=== PATIENT | male | born 1945 | race Caucasian/White ===

== ENCOUNTER 2021-09-02 14:55 | Inpatient (IN) | payer MEDICARE, SELFPAY ==
--- NOTE | ~2021-09-02 | NM_ITS ---
EXAMINATION: NM avtar stress w perfusion DATE: 09/03/2021 12:41 INDICATION: Chest pain. TECHNIQUE: Rest images were obtained following intravenous administration of 10.5 mCi Tc99m tetrofosm in (Myoview). The patient was infused intravenously with Lexiscan (regadenoson). Then, 33 mCi Tc99m t etrofosmin (Myoview) was administered intravenously, and stress images were obtained. Data was recons tructed into short axis and horizontal and vertical long axis SPECT images. Gated SPECT images were a lso obtained. COMPARISON: None. FINDINGS: There is no definite reversible or fixed perfusion abnormality to suggest ischemia or infar ction. There is global hypokinesis. Left ventricular ejection fraction measures 18%. IMPRESSION: 1. No definite ischemia or infarct. 2. Global hypokinesis with left ventricular ejection fraction measuring 18%. Reviewed, dictated and finalized at location B. COORDINATOR
--- NOTE | ~2021-09-02 | XR_ITS ---
XR chest 1V portable 09/02/2021 17:51 Indication: Shortness of breath. Hypertension. Low heart rate. Procedure: AP portable chest Comparison: 05/02/2009 Findings: Cardiomegaly with mild interstitial edema. No significant effusion or pneumothorax. No acut e osseous abnormality. Impression: 1: Cardiomegaly with mild interstitial edema. Reviewed, dictated and finalized at location A. ORATE TECHNICAL RECRUITER Impression: 1: Cardiomegaly with mild interstitial edema.
--- NOTE | 2021-09-02 14:57 | ECG_ITS ---
Measurements Intervals [place] Rate: 94 P: -14 [place]: 180 QRS: -47 QRSD: 181 T: 109 QT: 430 QTc: 538 Interpretive Statements SINUS RHYTHM FREQUENT ATRIAL AND VENTRICULAR PREMATURE COMPLEXES LEFT BUNDLE BRANCH BLOCK BASELINE ARTIFACT- I, II, III, AVR ABNORMAL ECG Electronically Signed On 09-02-2021 16:45:39 SWITCHBOARD CLERK by Fazal Arshad D.O.
[2021-09-02 15:04] VITALS: BP 138/104; PULSE 45; RESP 18; TEMP 36.8; O2SAT 100
[2021-09-02 15:30] LABS: Basophils Percent Auto 0.5 % (0.2-1.2); Eosinophils Absolute Auto 0.1 K/mm3 (0-0.3); Eosinophils Percent Auto 1.3 % (0-4.4); Hematocrit 48.1 % (42.0-52.0); Hemoglobin 15.9 g/dL (14.0-18.0); Immature Granulocyte Absolute 0.01 K/mm3 (0.00-0.031); Immature Granulocyte Percent A 0.2 % (0-0.5); Lymphocytes Absolute Auto 1.75 K/mm3 (0.9-3.2); Lymphocytes Percent Auto 27.5 % (18.3-44.2); Mean Corpuscular HGB Conc 33.1 g/dl (32-36); Mean Corpuscular Hemoglobin 30.9 pg (26-34); Mean Corpuscular Volume 93.4 fl (80-100); Mean Platelet Volume 10.4 fl (7.4-10.4); Monocytes Absolute Auto 0.5 K/mm3 (0.1-0.6); Neutrophils Percent Auto 62.5 % (45.5-73.1); Platelet Count Result 189 k/mm3 (150-375); Red Blood Count 5.15 M/mm3 (4.6-6.20); Red Cell Distribution Width 13.2 % (11.5-14.5); White Blood Count 6.4 K/mm3 (4.5-10.0)
[2021-09-02 15:37] LABS: Alanine Aminotransferase 16 U/L (4-50); Albumin Level 4.9 g/dL (3.5-5.1); Alkaline Phosphatase 72 U/L (38-126); Anion Gap 13 mmol/L (8-16); Aspartate Amino Transferase 24 U/L (17-59); Bilirubin,Total 0.6 mg/dL (0.2-1.3); Blood Urea Nitrogen 17 mg/dL (9-20); Calcium 9.6 mg/dL (8.4-10.2); Carbon Dioxide 23 mmol/L (22-30); Chloride 104 mmol/L (98-107); Estimated CRCL calculation 78 ml/min; Estimated Glomerular Filt Rate > 60; Glucose 101 mg/dL (65-110); Lipase 99 U/L (23-300); Sodium 140 mmol/L (137-145)
[2021-09-02 15:41] LABS: Prothrombin Time 12.9 Seconds (11.1-14.7)
[2021-09-02 15:42] LABS: Partial Thromboplastin Time 28.8 SECONDS (22.3-36.8)
[2021-09-02 15:49] LABS: Troponin I 0.016 ng/mL (0.000-0.034)
[2021-09-02 16:16] VITALS: BP 174/79; PULSE 38; O2SAT 36
--- NOTE | 2021-09-02 16:24 | ECG_ITS ---
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
[2021-09-02 16:45] VITALS: BP 184/83; PULSE 52; RESP 16; O2SAT 95
[2021-09-02 16:48] LABS: Fractional Inspired Oxygen 21 %; PCO2 VBG 41.2 mmHg (42.0-48.0); PO2 VBG 27.4 mmHg (35.0-45.0); pH VBG 7.384 (7.300-7.400)
[2021-09-02 16:49] LABS: Device ROOM AIR
[2021-09-02 17:04] LABS: Lactate Dehydrogenase 611 U/L (313-618)
[2021-09-02 17:07] LABS: NT Pro B Type Natriuretic Pept 1130 pg/mL (5-100)
--- NOTE | 2021-09-02 18:50 | ED.ARRPALP ---
HPI - Arrhythmia/Palpitations General Chief Complaint: Arrhythmia/Palpitations Stated Complaint: Low Heart Rate Time Seen by Provider: 09/02/21 16:18 Source: patient and family Mode of arrival: ambulatory Limitations: no limitations History of Present Illness HPI narrative: 76-year-old male Here because of low pulse Patient says that he was at his pain management appointment at [facility] this afternoon and when they took his vital signs his pulse there was 38 It sounds like they inquired as to symptoms and he told them that he had been feeling kind of weak and dizzy for several weeks at which point they suggested that he might be evaluated in the ER and after discussing with his primary care doctor in [place] he proceeded here On arrival indeed his palpable pulse is slow however his actual heart rate on the monitor tends to be in the 80s or 90s with considerable ventricular ectopy and it seems likely that his PVCs simply are not perfusing well He complains of weakness and exertional fatigue which has been present for several weeks He does not have any episodes of chest pain or tightness that he recalls He is triple vaccinated against Covid He has a history of having stents x2 placed at [facility] in [place] 9 or 10 years ago Related Data Allergies Allergy/AdvReac Type Severity Reaction Status Date / Time No Known Allergies Allergy Unknown Unverified 09/14/10 11:54 Review of Systems Review of Systems: All systems reviewed & are unremarkable except as noted in HPI and below Constitutional: Constitutional: Reports no additional constitutional complaints, Denies chills, Reports fatigue, Denies fever(s), Denies headache(s) and Reports weakness Eyes: Eyes: Reports no additional eye complaints and Denies change in vision ENT: Denies headache(s) and Denies sore throat Cardiovascular: Cardiovascular: Denies chest pain, Denies dyspnea and Reports slow heart rate Respiratory: Respiratory: Denies cough and Reports dyspnea Gastrointestinal: Gastrointestinal: Denies abdominal pain, Denies diarrhea and Denies vomiting Genitourinary: Genitourinary: Denies dysuria and Denies urinary frequency Musculoskeletal: Musculoskeletal: Denies deformity, Denies arthralgias, Denies joint swelling and Denies numbness Integumentary/Breasts: Skin/Breast: Denies rash and Denies wounds Neurologic: Denies headache(s), Denies focal weakness and Denies numbness Psychiatric: Psychiatric: Reports no additional psychiatric complaints Endocrine: Endocrine: Reports no additional endocrine complaints Hematologic/Lymphatic: Hematologic/Lymphatic: Reports no additional hematologic/lymphatic complaints Allergic/Immunologic: Allergic/Immunologic: Reports no additional allergic/immunologic complaints Exam Const: General: cooperative, no acute distress and alert Nutritional Appearance: obese Orientation/consciousness: patient oriented x3 (alert) HENMT: Head: normal to inspection, normocephalic and atraumatic Ears: external ears normal General nose exam: no epistaxis Eyes: Conjunctivae: conjunctivae normal EOM: EOMs intact bilaterally Neck: Neck: normal visual inspection, supple and no JVD Resp: Effort & Inspection: normal respiratory effort and not labored Auscultation: crackles, no rales, no rhonchi, no wheezes and other (BS =) Cardio: Rate: regular rate Rhythm: regular rhythm Heart sounds: no murmurs Other: Frequent extrasystoles GI: GI Palp: Yes Soft to palpation and No Tenderness to palpation present (GI) Skin: General skin exam: normal color and no rashes or lesions noted Neuro: General: patient oriented x3 (alert) and moves all extremities Speech: normal speech Extrem: General: normal to inspection and no pedal edema Psych: Affect: normal affect Course Course Emergency Course: Labs look pretty good EKG shows a left bundle and a lot of PVCs Discussed with Dr. Arshad, cardiology, he agrees that possibly the
--- NOTE | 2021-09-02 18:57 | PM.CNCAR ---
Assessment and Plan Assessment and plan (1) Chest pain: Code(s): R07.9 - Chest pain, unspecified Status: Acute Assessment and Plan: Obtain serial troponin. If troponin becomes positive, start Lovenox. (2) OLMEDO (dyspnea on exertion): Code(s): R06.00 - Dyspnea, unspecified Status: Acute (3) CAD (coronary artery disease): Code(s): I25.10 - Atherosclerotic heart disease of [place] coronary artery without angina pectoris Status: Acute Assessment and Plan: On aspirin and Plavix. (4) Dyslipidemia: Code(s): E78.5 - Hyperlipidemia, unspecified Status: Acute Assessment and Plan: On statin. (5) CHF (congestive heart failure): Code(s): I50.9 - Heart failure, unspecified Status: Acute Assessment and Plan: Unclear etiology. NTproBNP 1,130 and CXR with mild CHF. Diurese with Lasix 40 mg IV BID. Obtain echo. History of Present Illness History of Present Illness Consult date/time: 09/02/21 18:57 Reason for consult: Bradycardia 76 yr old man presents to ER for bradycardia. 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 is at bedside in ER. Patient reports he was seeing pain management for his chronic left leg neuropathy at [facility] and was told his HR checked by pulse ox device was 38 bpm, and was told to go to ER for evaluation. In ED his HR has not been slow but he does have frequent PVC's. He reports in last 2 months having progressive OLMEDO with minimal exertion, orthopnea, and dizziness while standing or walking. He is limited at walking with his cane about 10 feet due to neuropathy and OLMEDO. He also reports having chest pressure intermittently with exertion. In ED EKG shows sinus rhythm with frequent PVC's and LBBB. CXR shows cardiomegaly with mild interstitial edema. Troponin is OK. CBC and CMP are OK. NTproBNP 1,130. Reason For Visit: Low Heart Rate Review of Systems Constitutional: Constitutional: Reports as per HPI, Denies chills, Reports fatigue and Denies fever(s) Cardiovascular: Cardiovascular: Reports as per HPI, Reports chest pain, Denies irregular heart rhythm, Denies leg edema and Reports lightheadedness Respiratory: Respiratory: Reports as per HPI and Reports dyspnea on exertion Gastrointestinal: Gastrointestinal: Reports as per HPI and Denies abdominal pain Genitourinary: Genitourinary: Reports as per HPI and Denies dysuria Musculoskeletal: Musculoskeletal: Reports as per HPI and Reports atrophy (left leg) Neurologic: Reports as per HPI, Reports dizziness and Denies syncope Meds Home Medications and Allergies Allergies Allergy/AdvReac Type Severity Reaction Status Date / Time No Known Allergies Allergy Unknown Unverified 09/14/10 11:54 Vital Signs Vital Signs - 24 hr 09/02/21 15:04 09/02/21 16:16 09/02/21 16:45 Temperature 98.2 F Pulse Rate 45 L 38 L 52 L Respiratory Rate 18 16 Blood Pressure 138/104 H 174/79 H 184/83 H Pulse Oximetry 100 36 L 95 Exam Const: General: cooperative, healthy appearing and comfortable Nutritional Appearance: obese Resp: Auscultation: clear to auscultation bilaterally, no crackles, no rales, no rhonchi and no wheezes Cardio: Jugular venous distension: no JVD Rate: regular rate Rhythm: regular rhythm Heart sounds: no murmurs Peripheral pulses: dorsalis pedis present GI: GI Palp: No abdominal tenderness and Yes Soft to palpation Neuro: General: oriented to person, oriented to place and oriented to time Extrem: Right lower extremity: no edema Left lower extremity: no edema Results Labs and Meds Result diagrams: 09/02/21 15:19 09/02/21 15:19 Lab results: Cardiac Enzymes 09/02/21 09/02/21 Range/Units 15:19 16:41 AST 24 (17-59) U/L Lactate Dehydrogenase 611 (313-
[2021-09-02 19:32] LABS: Troponin I 0.017 ng/mL (0.000-0.034)
--- NOTE | 2021-09-02 20:30 | PM.IMHP ---
H&P: HPI History of Present Illness Date/Time: 09/02/21 20:30 this is a 76-year-old male patient who has a history of coronary artery disease with 3 stents. The patient has chronic back pain and went to his pain management clinic. They placed him on a pulse ox machine and found that his heart rate was in the 30s. They suggested that the patient be evaluated by the emergency room. 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 However the patient chose to come to [facility] today. The patient had a palpable pulse that was slow however his heart rate on the monitor was 80s to 90s with frequent PVCs and PACs. Patient had no shortness of breath while laying there. However the patient stated that he has been having shortness of breath with exertion for quite some time now. It does not have any complaints of any chest pain or shortness of breath. No fever chills. The patient has had the full COVID vaccine with the booster. The patient tells me that he has had 3 cardiac stents. Cardiology was consulted and recommended doubling his Coreg. The patient stated that his Coreg was want triple what he is taking now however he was not feeling well with that does and it was cut in half and then cut down to his home dose that he has now. His magnesium level was within normal limits. Patient was given Tylenol and IV fluids in the emergency room. The patient had only been on a Coreg 3.12 twice a day currently. At 1 point and had been triple that does. The troponins are negative x2 so far. BNP is listed as 1130. Chest x-ray was read as cardiomegaly with mild interstitial edema. The patient is being admitted to inpatient services on the date of service of 09/02/2021. Chief Complaint: Bradycardia Review of Systems Review of Systems: All systems reviewed & are unremarkable except as noted in HPI and below Constitutional: Constitutional: Reports as per HPI and Reports no additional constitutional complaints Eyes: Eyes: Reports as per HPI and Reports no additional eye complaints ENT: Reports system reviewed and no additional complaints, except as documented and Reports Normal hearing present Cardiovascular: Cardiovascular: Reports no additional cardiovascular complaints Respiratory: Respiratory: Reports no additional respiratory complaints and Reports no additional respiratory complaints Gastrointestinal: Gastrointestinal: Reports as per HPI and Reports no additional gastrointestinal complaints Musculoskeletal: Musculoskeletal: Reports no additional musculoskeletal complaints Integumentary/Breasts: Skin/Breast: Reports system reviewed and no additional complaints, except as docu and Reports as per HPI Neurologic: Reports system reviewed and no additional complaints, except as documented, Reports as per HPI and Reports Normal hearing present Psychiatric: Psychiatric: Reports no additional psychiatric complaints and Reports as per HPI Endocrine: Endocrine: Reports no additional endocrine complaints Hematologic/Lymphatic: Hematologic/Lymphatic: Reports no additional hematologic/lymphatic complaints Allergic/Immunologic: Allergic/Immunologic: Reports no additional allergic/immunologic complaints [facility] Past Medical History Medical History (Updated 09/02/21 @ 20:50 by Neeilma Mendieta NP) CAD (coronary artery disease) CHF (congestive heart failure) Chronic back pain Dyslipidemia 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
[2021-09-02 22:00] LABS: Troponin I 0.024 ng/mL (0.000-0.034)
--- NOTE | 2021-09-02 22:31 | ADMGEN ---
This patient, Tony Snell, was admitted to IMU Room 212-01. Patient/family oriented to hospital policies and general routines including ID bracelet, bed and alarms, visiting hours, pain management, procedures, bathroom and other care routines, personal items, smoking policy, room service/diet, and visiting hours. Information on how to activate the Rapid Response Team has been discussed. Patient/Family are encouraged to report perceived risks to care and to ask questions if they do not understand what they are told or what they should do.
[2021-09-02 23:00] VITALS: PULSE 88
[2021-09-02 23:12] VITALS: BP 150/95; PULSE 90; RESP 18; TEMP 36.5; O2SAT 98
[2021-09-02 23:14] VITALS: BMI 33.6
[2021-09-03] VITALS (16 sets, daily range): BP systolic 95–148; BP diastolic 61–88; PULSE 70–99; RESP 12–20; TEMP 36.2–36.9; O2SAT 93–99
--- NOTE | 2021-09-03 | ECHO_ITS ---
Patient Info Name: Tony Snell Age: 76 years : 1945 Gender: Male Ht: 66 in Wt: 225 lbs BSA: 2.22 m2 HR: 69 bpm BP: 148 / 83 mmHg Technical Quality: Good Exam Date: 09/03/2021 1:04 PM Exam Location: [facility] Pulmonary Exam Room: [facility] Patient Status: Inpatient Admit Date: 09/02/2021 Staff Ordering Physician: Neelima Mendieta NP Industrial Economics Teacher: Summer Helms RDCS Attending Provider: Hallie Mendez MD Referring Physician: Anam BRITTON; Exam Type: CA echo doppler color flow Study Info Indications - cad Complete two-dimensional, color flow and Doppler transthoracic echocardiogram is performed. Summary 1. Complete two-dimensional, color flow and Doppler transthoracic echocardiogram is performed. 2. Left ventricular chamber dimension is severely enlarged. 3. Left ventricular systolic function is severely reduced, estimated at 15-20%. 4. Left ventricular septal wall motion is abnormal with septal motion related to bundle branch block. 5. The left ventricular diastolic function is grade I diastolic dysfunction. 6. E/e' 11 is mildly elevated. 7. Left atrial chamber dimension is mildly enlarged. 8. There is mild aortic valve sclerosis. 9. There is trace aortic valve regurgitation. 10. The mitral valve has mildly calcified annulus. 11. There is mild to moderate mitral valve regurgitation. 12. No pulmonary hypertension, estimated pulmonary arterial systolic pressure is 16 mmHg. Left Ventricle E/e' 11 is mildly elevated. Left ventricular chamber dimension is severely enlarged. Left ventricular systolic function is severely reduced, estimated at 15-20%. Left ventricular septal wall motion is abnormal with septal motion related to bundle branch block. The left ventricular diastolic function is grade I diastolic dysfunction. Right Ventricle Right ventricular chamber dimension is normal. Right ventricular systolic function is normal. Left Atria Left atrial chamber dimension is mildly enlarged. Right Atria Right atrial chamber dimension is normal. Aortic Valve The aortic valve is trileaflet. There is mild aortic valve sclerosis. There is no aortic valve stenosis. There is trace aortic valve regurgitation. Pulmonic Valve There is no pulmonic regurgitation. Mitral Valve The mitral valve has mildly calcified annulus. There is no mitral valve stenosis. There is mild to moderate mitral valve regurgitation. Tricuspid Valve There is no tricuspid valve regurgitation. No pulmonary hypertension, estimated pulmonary arterial systolic pressure is 16 mmHg. Pericardium/Pleural There is no pericardial effusion. Inferior Vena Cava Normal inferior vena cava with >50% collapse upon inspiration consistent with normal right atrial pressure, 5 mmHg. Aorta The aortic root size at the sinus of Valsalva is normal. Left Ventricular Outflow Tract Name Value Normal LVOT 2D LVOT Diameter 2.1 cm LVOT Doppler LVOT Peak Gradient 6 mmHg LVOT Mean Gradient 4 mmHg LVOT VTI 22 cm LVOT VTI/
[2021-09-03] MEDS: ZOLPIDEM TARTRATE (*CRX) 5 MG TABLET 10 MG PO (01:16)
[2021-09-03] MEDS: LORazepam (*CRX) 1 MG TABLET PO ×2 (01:17→17:34)
[2021-09-03] MEDS: HYDROcodone/acetaminophen (*CRX) 10-325 MG TABLET 1 TAB PO ×3 (01:17→20:30)
[2021-09-03] MEDS: ROSUVASTATIN 10 MG TABLET 20 MG PO ×2 (01:18→17:35)
[2021-09-03] MEDS: carvediloL 6.25 MG TABLET PO ×2 (01:18→20:30)
[2021-09-03 05:36] LABS: Basophils Percent Auto 0.3 % (0.2-1.2); Eosinophils Absolute Auto 0.1 K/mm3 (0-0.3); Eosinophils Percent Auto 1.3 % (0-4.4); Hemoglobin 16.1 g/dL (14.0-18.0); Immature Granulocyte Absolute 0.02 K/mm3 (0.00-0.031); Immature Granulocyte Percent A 0.3 % (0-0.5); Lymphocytes Absolute Auto 1.75 K/mm3 (0.9-3.2); Lymphocytes Percent Auto 23.5 % (18.3-44.2); Mean Corpuscular HGB Conc 33.5 g/dl (32-36); Mean Corpuscular Hemoglobin 30.6 pg (26-34); Mean Corpuscular Volume 91.3 fl (80-100); Mean Platelet Volume 10.5 fl (7.4-10.4); Monocytes Absolute Auto 0.6 K/mm3 (0.1-0.6); Monocytes Percent Auto 8.1 % (2.6-8.5); Neutrophils Percent Auto 66.5 % (45.5-73.1); Platelet Count Result 167 k/mm3 (150-375); Red Blood Count 5.26 M/mm3 (4.6-6.20); White Blood Count 7.5 K/mm3 (4.5-10.0)
[2021-09-03 05:47] LABS: Lactic Acid Reflex 1.2 mmol/L (0.7-2.1)
[2021-09-03 05:50] LABS: Alanine Aminotransferase 15 U/L (4-50); Albumin Level 4.5 g/dL (3.5-5.1); Alkaline Phosphatase 64 U/L (38-126); Anion Gap 12 mmol/L (8-16); Aspartate Amino Transferase 23 U/L (17-59); Bilirubin,Total 0.5 mg/dL (0.2-1.3); Blood Urea Nitrogen 16 mg/dL (9-20); Calcium 9.5 mg/dL (8.4-10.2); Carbon Dioxide 23 mmol/L (22-30); Chloride 105 mmol/L (98-107); Estimated CRCL calculation 75 ml/min; Estimated Glomerular Filt Rate > 60; Glucose 111 mg/dL (65-110); Lactate Dehydrogenase 430 U/L (313-618); Potassium 3.8 mmol/L (3.4-5.0); Sodium 140 mmol/L (137-145)
--- NOTE | 2021-09-03 06:26 | EST_ITS ---
Patient Info Name: Tony Snell Age: 76 years : 1945 Gender: Male Ht: 66 in Wt: 208 lbs BSA: 2.13 m2 HR: 83 bpm BP: 138 / 60 mmHg Heart Rhythm: Tachycardia Exam Date: 09/03/2021 10:29 AM Exam Location: [facility] Stress Patient Status: Inpatient Admit Date: 09/02/2021 Staff Ordering Physician: Fazal Arshad DO Attending Provider: Hallie Mendez MD Exercise Technologist: Glenny Reno CT Exercise Physician: Fazal Arshad DO Exam Type: CA stress avtar w NM Study Info Indications I47.2 - Ventricular tachycardia A regadenoson stress test was performed. Summary 1. 1. Inconclusive lexiscan stress test for ischemic ST changes by ECG criteria due to baseline LBBB. 2. 2. Significant side effect from lexiscan with bradycardia requiring reversal with Aminophylline. 3. 3. Nuclear scan to follow and will be reported separately. Please correlate with it. 4. 4. Patient informed of the above results. Protocol: Lexiscan Stress ECG Details Stage: REST Duration (min): 6 min : 44 sec HR (bpm): 85 SBP (mmHg): --- DBP (mmHg): --- Stage: REST Duration (min): 8 min : 3 sec HR (bpm): 83 SBP (mmHg): --- DBP (mmHg): --- Stage: STAGE 1 Duration (min): 0 min : 59 sec HR (bpm): 82 SBP (mmHg): --- DBP (mmHg): --- Stage: RECOVERY Duration (min): 1 min : 0 sec HR (bpm): 71 SBP (mmHg): --- DBP (mmHg): --- Stage: RECOVERY Duration (min): 2 min : 0 sec HR (bpm): 61 SBP (mmHg): --- DBP (mmHg): --- Stage: RECOVERY Duration (min): 3 min : 0 sec HR (bpm): 45 SBP (mmHg): --- DBP (mmHg): --- Stage: RECOVERY Duration (min): 4 min : 0 sec HR (bpm): 54 SBP (mmHg): --- DBP (mmHg): --- Stage: RECOVERY Duration (min): 5 min : 0 sec HR (bpm): 55 SBP (mmHg): --- DBP (mmHg): --- Stage: RECOVERY Duration (min): 6 min : 0 sec HR (bpm): 78 SBP (mmHg): --- DBP (mmHg): --- Stage: RECOVERY Duration (min): 7 min : 0 sec HR (bpm): 78 SBP (mmHg): --- DBP (mmHg): --- Stage: RECOVERY Duration (min): 8 min : 0 sec HR (bpm): 79 SBP (mmHg): --- DBP (mmHg): --- Stage: RECOVERY Duration (min): 9 min : 0 sec HR (bpm): 80 SBP (mmHg): --- DBP (mmHg): --- Stage: RECOVERY Duration (min): 10 min : 0 sec HR (bpm): 76 SBP (mmHg): --- DBP (mmHg): --- Stage: RECOVERY Duration (min): 11 min : 0 sec HR (bpm): 78 SBP (mmHg): --- DBP (mmHg): --- Stage: RECOVERY Duration (min): 12 min : 0 sec HR (bpm): 80 SBP (mmHg): --- DBP (mmHg): --- Stage: RECOVERY Duration (min): 13 min : 0 sec HR (bpm): 82 SBP (mmHg): --- DBP (mmHg): --- Stage: RECOVERY Duration (min): 14 min : 0 sec HR (bpm): 8
[2021-09-03] MEDS: FUROSEMIDE INJ 40 MG/4 ML VIAL 20 MG IV PUSH (06:59)
--- NOTE | 2021-09-03 07:41 | PM.PNCARD ---
Progress Note: A&P Assessment and Plan (1) Chest pain: Code(s): R07.9 - Chest pain, unspecified Status: Acute Assessment and Plan: PA has been ruled out by serial troponin and EKG. Obtain lexiscan myoview stress test. (2) OLMEDO (dyspnea on exertion): Code(s): R06.00 - Dyspnea, unspecified Status: Acute (3) CAD (coronary artery disease): Code(s): I25.10 - Atherosclerotic heart disease of [place] coronary artery without angina pectoris Status: Chronic Assessment and Plan: On aspirin and Plavix. (4) Dyslipidemia: Code(s): E78.5 - Hyperlipidemia, unspecified Status: Chronic Assessment and Plan: On statin. (5) CHF (congestive heart failure): Code(s): I50.9 - Heart failure, unspecified Status: Chronic Assessment and Plan: Unclear etiology. NTproBNP 1,130 and CXR with mild CHF. Diurese with Lasix 20 mg IV x1. Obtain echo. (6) Hypertension: Code(s): I10 - Essential (primary) hypertension Status: Acute Assessment and Plan: High. Increase Coreg 12.5 mg BID. (7) Ventricular ectopics: Code(s): I49.3 - Ventricular premature depolarization Status: Acute Assessment and Plan: Probably exacerbated by decreasing Coreg dose recently. No bradyarrhythmias, just PVC's causing falsely low HR counts. Subjective Date/time seen: 09/03/21 07:41 Denies chest pain or sob last night. Exam Const: General: cooperative, healthy appearing and comfortable Nutritional Appearance: obese Resp: Auscultation: clear to auscultation bilaterally, no crackles, no rales, no rhonchi and no wheezes Cardio: Jugular venous distension: no JVD Rate: regular rate Rhythm: regular rhythm Heart sounds: no murmurs Peripheral pulses: dorsalis pedis present GI: GI Palp: No abdominal tenderness and Yes Soft to palpation Neuro: General: oriented to person, oriented to place and oriented to time Extrem: Right lower extremity: no edema Left lower extremity: no edema Objective Data Vital Signs Vital Signs: Vital Signs - 24 hr 09/02/21 15:04 09/02/21 16:16 09/02/21 16:45 Temperature 98.2 F Pulse Rate 45 L 38 L 52 L Respiratory Rate 18 16 Blood Pressure 138/104 H 174/79 H 184/83 H Pulse Oximetry 100 36 L 95 09/02/21 23:00 09/02/21 23:12 09/03/21 00:46 Temperature 97.7 F Pulse Rate 88 90 Respiratory Rate 18 Blood Pressure 150/95 H Pulse Oximetry 98 96 09/03/21 01:18 09/03/21 02:00 09/03/21 04:00 Temperature 98.1 F Pulse Rate 88 86 82 Respiratory Rate 20 Blood Pressure 148/83 H Pulse Oximetry 99 09/03/21 06:00 Temperature Pulse Rate 86 Respiratory Rate Blood Pressure Pulse Oximetry Intake/Output Intake/Output: Intake & Output 08/31/21 09/01/21 09/02/21 09/03/21 23:59 23:59 23:59 23:59 Output Total 500 Balance -500 Meds/Results Medications: Active Medications Generic Name Dose Route Start Last Admin Trade Name Freq PRN Reason Stop Dose Admin Acetaminophen 650 mg 09/02/21 20:17 Acetaminophen 325 Mg Tablet PO Q4H PRN Mild Pain (1-3) or Fever Hydrocodone Bitart/Acetaminophen 1 tab 09/03/21 09:00 Hydrocodone/Acetaminophen (*Crx) 10-325 Mg Tablet PO Q12HR [facility] Carvedilol 12.5 mg 09/03/21 09:00 Carvedilol 12.5 Mg Tablet PO Q12HR [facility] Clopidogrel Bisulfate 75 mg 09/03/21 09:00 Clopidogrel Bisulfate 75 Mg Tablet PO DAILY [facility] Enoxaparin Sodium 40 mg 09/03/21 09:00 Enoxaparin 40 Mg/0.4 Ml Syringe SUB-Q DAILY [facility] Escitalopram Oxalate 10 mg 09/03/21 09:00 Escitalopram Oxalate 10 Mg Tablet PO DAILY [facility] Isosorbide Mononitrate 60 mg 09/03/21 09:00 Isosorbide Mononitrate 60 Mg Tab.Er.24h PO DAILY [facility] Lorazepam 1 mg 09/03/21 18:00 Lorazepam (*Crx) 1 Mg Tablet PO QPM VALE Pantoprazole Sodium 40 mg 09/03/21 09:00 Pantoprazole 40 Mg Tablet PO 10/03/21 08:59
[2021-09-03] MEDS: carvediloL 12.5 MG TABLET PO (09:29)
[2021-09-03] MEDS: ESCITALOPRAM OXALATE 10 MG TABLET PO (09:29)
[2021-09-03] MEDS: CLOPIDOGREL BISULFATE 75 MG TABLET PO (09:29)
[2021-09-03] MEDS: ENOXAPARIN 40 MG/0.4 ML SYRINGE SUB-Q (09:29)
[2021-09-03] MEDS: PANTOPRAZOLE 40 MG TABLET PO (09:30)
[2021-09-03] MEDS: ISOSORBIDE MONONITRATE 60 MG TAB.ER.24H PO (09:30)
[2021-09-03] MEDS: ASPIRIN 81 MG ENTERIC TABLET PO (09:31)
[2021-09-03] MEDS: LORATADINE 10 MG TABLET PO (09:31)
--- NOTE | 2021-09-03 09:53 | PC.NURSE ---
Patient downstairs for a cardiac stress test at 0938.
--- NOTE | 2021-09-03 11:37 | PC.NURSE ---
Patient back to floor from cardiac stress test at 1137.
[2021-09-03] MEDS: SACCHAROMYCES BOULARDII 250 MG CAPSULE PO ×2 (11:40→17:35)
[2021-09-03] MEDS: MIRABEGRON 50 MG ER TABLET PO (12:17)
[2021-09-03] MEDS: PREGABALIN (*CRX) 50 MG CAPSULE PO ×2 (12:17→17:34)
[2021-09-03] MEDS: SODIUM CHLORIDE 0.9% IV 1,000 ML 999 ML IV CONT (12:17)
[2021-09-03 13:04] LABS: Glucose Point of Care 155 mg/dl (65-105)
--- NOTE | 2021-09-03 13:18 | PM.IMPN ---
Progress Note: A&P Assessment and Plan (1) Cardiac arrhythmia: Code(s): I49.9 - Cardiac arrhythmia, unspecified Status: Acute Assessment and Plan: Patient came in due to pulse oximeter reading at his pain management and primary care office saying that his heart rate was in the 30s. Patient otherwise had dyspnea on exertion, intermittent dizziness for the last 1 month. 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 Troponins stayed within normal range with highest going at 0.024 Dr. Arshad Cardiology ordered for the patient to have a Lexiscan Myoview stress test which was completed but the patient had a reaction and and became bradycardic and required Aminophylline reversal. Since then the patient has had a soft blood pressure, and received some IV fluids with improvement to 138 systolic. Patient continues have some nausea so will order IV Zofran and continue monitoring with his prolonged QTC on the monitor Discussed with Dr. Arshad who will talk to the [facility] group about performing a cardiac catheterization on Wednesday for further evaluation and ischemic workup Patient understands with the plan at this time. Will start a heart healthy diet and continue monitoring on tele. Appreciate cardiology's input. (2) CAD (coronary artery disease): Code(s): I25.10 - Atherosclerotic heart disease of [place] coronary artery without angina pectoris Status: Chronic Assessment and Plan: Continue with patient's home medications. The patient stated the he has a history of having 3 coronary stents. Continue aspirin and Plavix. Appreciate cardiology's input (3) CHF (congestive heart failure): Code(s): I50.9 - Heart failure, unspecified Status: Chronic Assessment and Plan: Continue with home medications. He stated he had an echo approximately 1 year ago. EF on Lexiscan stress test showed his heart function at 18% Still pending echocardiogram results Appreciate cardiology's input. (4) Chronic back pain: Code(s): M54.9 - Dorsalgia, unspecified; G89.29 - Other chronic pain Status: Chronic Assessment and Plan: History of back surgery and left nerve damage with footdrop. Stable at this time. Continue with home medications for pain management. (5) Dyslipidemia: Code(s): E78.5 - Hyperlipidemia, unspecified Status: Chronic Assessment and Plan: Continue with home medications. Time Spent With Patient Time with patient: 25 - 35 minutes Subjective Date/time seen: 09/03/21 13:18 Interval history: Date of service 09/03/2021: Patient reports nausea at this time. He does have mild upper abdominal tenderness to palpation as well. He has not felt well since his Lexiscan stress test this morning. Patient does report 5 loose stools last night, and then 2 episodes of diarrhea after his Lexiscan stress test. Denies any blood in his stools. Denies any chest pain, shortness of breath at rest, leg swelling, calf pain, cough, vomiting, or any other symptoms at this time. Review of Systems Review of Systems: All systems reviewed & are unremarkable except as noted in HPI and below Exam Narrative: General: 76-year-old man laying flat in bed holding green vomit bag and at bedside. Appears comfortable. In no acute distress. Skin: No jaundice or cyanosis. Good skin turgor. Neck: Full range of motion. Supple. Respiratory: Lungs are clear to auscultation bilaterally. No bony chest wall tenderness. Cardiovascular: The heart has a regular rate and rhythm without murmur. Tele shows NSR rate 83 b
[2021-09-03] MEDS: ONDANSETRON INJ 4 MG/2 ML VIAL IV PUSH (14:45)
[2021-09-03] MEDS: MELATONIN 5 MG TABLET PO (20:29)
[2021-09-04] VITALS (16 sets, daily range): BP systolic 102–140; BP diastolic 60–88; PULSE 65–84; RESP 16–20; TEMP 36–37.3; O2SAT 91–99
[2021-09-04 06:02] LABS: Hematocrit 45.7 % (42.0-52.0); Hemoglobin 15.2 g/dL (14.0-18.0); Mean Corpuscular HGB Conc 33.3 g/dl (32-36); Mean Corpuscular Hemoglobin 30.8 pg (26-34); Mean Corpuscular Volume 92.5 fl (80-100); Mean Platelet Volume 10.8 fl (7.4-10.4); Platelet Count Result 183 k/mm3 (150-375); Red Blood Count 4.94 M/mm3 (4.6-6.20); Red Cell Distribution Width 13.3 % (11.5-14.5); White Blood Count 9.4 K/mm3 (4.5-10.0)
[2021-09-04 06:17] LABS: Anion Gap 10 mmol/L (8-16); Blood Urea Nitrogen 26 mg/dL (9-20); Calcium 9.4 mg/dL (8.4-10.2); Carbon Dioxide 26 mmol/L (22-30); Chloride 105 mmol/L (98-107); Estimated CRCL calculation 32 ml/min; Estimated Glomerular Filt Rate 33; Glucose 103 mg/dL (65-110); Potassium 3.9 mmol/L (3.4-5.0); Sodium 141 mmol/L (137-145)
[2021-09-04] MEDS: ENOXAPARIN 40 MG/0.4 ML SYRINGE SUB-Q (08:22)
[2021-09-04] MEDS: LACTATED RINGERS 1,000 ML 100 ML IV CONT (08:22)
[2021-09-04] MEDS: ASPIRIN 81 MG ENTERIC TABLET PO (08:23)
[2021-09-04] MEDS: PREGABALIN (*CRX) 50 MG CAPSULE PO ×2 (08:23→17:04)
[2021-09-04] MEDS: LORATADINE 10 MG TABLET PO (08:23)
[2021-09-04] MEDS: PANTOPRAZOLE 40 MG TABLET PO (08:23)
[2021-09-04] MEDS: SACCHAROMYCES BOULARDII 250 MG CAPSULE PO ×2 (08:23→17:04)
[2021-09-04] MEDS: HYDROcodone/acetaminophen (*CRX) 10-325 MG TABLET 1 TAB PO ×2 (08:23→20:23)
[2021-09-04] MEDS: MIRABEGRON 50 MG ER TABLET PO (08:23)
[2021-09-04] MEDS: ESCITALOPRAM OXALATE 10 MG TABLET PO (08:23)
[2021-09-04] MEDS: carvediloL 3.125 MG TABLET PO ×2 (08:23→20:23)
[2021-09-04] MEDS: CLOPIDOGREL BISULFATE 75 MG TABLET PO (08:23)
[2021-09-04 08:37] LABS: Cholesterol 78 mg/dL (0-200); HDL Direct 23 mg/dL; Triglycerides 141 mg/dL (<150)
[2021-09-04 08:48] LABS: LDL Cholesterol Direct 37 mg/dL
--- NOTE | 2021-09-04 09:01 | PM.PNCARD ---
Progress Note: A&P Assessment and Plan (1) Chest pain: Code(s): R07.9 - Chest pain, unspecified Status: Acute Assessment and Plan: ID has been ruled out by serial troponin and EKG. Lexiscan myoview stress test shows no ischemia; EF 18%. (2) OLMEDO (dyspnea on exertion): Code(s): R06.00 - Dyspnea, unspecified Status: Acute (3) CAD (coronary artery disease): Code(s): I25.10 - Atherosclerotic heart disease of [place] coronary artery without angina pectoris Status: Chronic Assessment and Plan: On aspirin and Plavix. (4) Dyslipidemia: Code(s): E78.5 - Hyperlipidemia, unspecified Status: Chronic Assessment and Plan: On statin. (5) CHF (congestive heart failure): Code(s): I50.9 - Heart failure, unspecified Status: Chronic Assessment and Plan: Unclear etiology. NTproBNP 1,130 and CXR with mild CHF. Diurese with Lasix 20 mg IV x1. (6) Hypertension: Code(s): I10 - Essential (primary) hypertension Status: Acute Assessment and Plan: Stable. Low normal. Hold Isosorbide mononitrate. (7) Ventricular ectopics: Code(s): I49.3 - Ventricular premature depolarization Status: Acute Assessment and Plan: Probably exacerbated by decreasing Coreg dose recently. No bradyarrhythmias, just PVC's causing falsely low HR counts. 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 Echo shows EF 15-20%, severe LVE, grade I diastolic dysfunction (E/e' 11), trace AI, mild-mod MR. Discuss risks/benefits/alternative to left heart cath and he is agreeable for procedure. Today is Thanksgiving so no non-urgent procedure today. Plan for tomorrow if kidney function improves. Will give low flow IVF at 50 ml/hr for 500 ml. This was probably from hypotensive episode from side effect from Lexiscan yesterday. I will notify HCG tomorrow if he will be going for left heart cath tomorrow. Will start Entresto tomorrow if kidney function improves. On Coreg. Order Life Vest to prevent sudden cardiac arrest, and patient is interested in it. Subjective Date/time seen: 09/04/21 09:01 Denies chest pain or sob. No longer having abdominal pain or nausea from Lexiscan yesterday. Exam Const: General: cooperative, healthy appearing and comfortable Nutritional Appearance: obese Resp: Auscultation: clear to auscultation bilaterally, no crackles, no rales, no rhonchi and no wheezes Cardio: Jugular venous distension: no JVD Rate: regular rate Rhythm: regular rhythm Heart sounds: no murmurs Peripheral pulses: dorsalis pedis present GI: GI Palp: No abdominal tenderness and Yes Soft to palpation Neuro: General: oriented to person, oriented to place and oriented to time Extrem: Right lower extremity: no edema Left lower extremity: no edema Objective Data Vital Signs Vital Signs: Vital Signs - 24 hr 09/03/21 09:29 09/03/21 10:00 09/03/21 12:00 Temperature 97.9 F Pulse Rate 99 91 85 Respiratory Rate 18 Blood Pressure 95/61 L Pulse Oximetry 94 09/03/21 14:00 09/03/21 16:00 09/03/21 18:00 Temperature 97.8 F Pulse Rate 80 80 85 Respiratory Rate 18 Blood Pressure 107/69 Pulse Oximetry 94 09/03/21 19:40 09/03/21 20:00 09/03/21 20:30 Temperature 97.1 F L Pulse Rate 75 70 87 Respiratory Rate 16 16 Blood Pressure 112/88 Pulse Oximetry 96 96 09/03/21 22:00 09/04/21 00:00 09/04/21 02:00 Temperature 97.9 F Pulse Rate 76 73 76 Respiratory Rate 16 Blood Pressure 102/60 Pulse Oximetry 94 09/04/21 04:00 09/04/21 06:00 09/04/21 08:00 Temperature 96.8 F L 98.1 F Pulse Rate 78 68 76 Respiratory Rate 16 18 Blood Pressure 109/73 140/86 Pulse Oximetry 91 98 09/04/21 08:23 Temperature Pulse Rate 76
--- NOTE | 2021-09-04 09:08 | PM.IMPN ---
Progress Note: A&P Assessment and Plan (1) Cardiac arrhythmia: Code(s): I49.9 - Cardiac arrhythmia, unspecified Status: Acute Assessment and Plan: Patient is a 76-year-old man with a history of coronary artery disease status post PCI x3, father had CABG x5, who presented to the emergency room for abnormal pulse readings. Patient came in due to pulse oximeter reading at his pain management and primary care office saying that his heart rate was in the 30s. Patient otherwise had dyspnea on exertion, intermittent dizziness for the last 1 month. 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 Troponins stayed within normal range with highest going at 0.024 Dr. Arshad Cardiology ordered for the patient to have a Lexiscan Myoview stress test which was completed but the patient had a reaction and and became bradycardic and required Aminophylline reversal. Since then the patient has had a soft blood pressure, and received some IV fluids with improvement to [address] Arshad who will talk to the Heart Care group about performing a cardiac catheterization on Wednesday or Wednesday for further evaluation and ischemic workup Patient feeling well at this time. Patient understands with the plan at this time. Appreciate cardiology's input. (2) JULIA (acute kidney injury): Code(s): N17.9 - Acute kidney failure, unspecified Status: Acute Assessment and Plan: This morning the patient's creatinine went up to 2.0. This could be after the diuretics verses nuclear medicine side effect causing bradycardia and hypotension causing the kidneys to go in shock. Talked to yarn carrier who recommended 500 cc of fluids which will be ran at 50 cc an hour. Will recheck renal function in the morning. Patient may not be able to have cardiac catheterization tomorrow if his creatinine is still elevated due to the contrast dye that is used. Will continue monitoring. (3) Combined systolic and diastolic congestive heart failure: Code(s): I50.40 - Unspecified combined systolic (congestive) and diastolic (congestive) heart failure Status: Acute Assessment and Plan: Systolic and diastolic dysfunction, NOT in exacerbation. Continue with home medications. He stated he had an echo approximately 1 year ago. EF on Lexiscan stress test showed his heart function at 18% Echocardiogram shows LV chamber severely enlarged, LV systolic function is severely reduced at 15-20%, Left ventricular septal wall motion is abnormal with septal motion related to bundle branch block. Left ventricular diastolic function is grade I diastolic dysfunction. Appreciate cardiology's input. (4) CAD (coronary artery disease): Code(s): I25.10 - Atherosclerotic heart disease of [place] coronary artery without angina pectoris Status: Chronic Assessment and Plan: Continue with patient's home medications. The patient stated the he has a history of having 3 coronary stents. Continue aspirin and Plavix. Appreciate cardiology's input (5) Chronic back pain: Code(s): M54.9 - Dorsalgia, unspecified; G89.29 - Other chronic pain Status: Chronic Assessment and Plan: History of back surgery and left nerve damage with footdrop. Stable at this time. Continue with home medications for pain management. (6) Dyslipidemia: Code(s): E78.5 - Hyperlipidemia, unspecified Status: Chronic Assessment and Plan: Continue with home medications. Time Spent With Patient Time with patient: 25 - 35 minut
--- NOTE | 2021-09-04 12:17 | ECG_ITS ---
Measurements Intervals [place] Rate: 67 P: -31 FL: 183 QRS: -40 QRSD: 181 T: 133 QT: 486 QTc: 515 Interpretive Statements VENTRICULAR PREMATURE COMPLEX SINUS RHYTHM LEFT AXIS DEVIATION LEFT BUNDLE BRANCH BLOCK ABNORMAL ECG Electronically Signed On 09-04-2021 15:04:20 TECHNICAL COMMUNICATOR by Fazal Arshad D.O.
[2021-09-04 13:23] LABS: Troponin I 0.025 ng/mL (0.000-0.034)
[2021-09-04] MEDS: ROSUVASTATIN 10 MG TABLET 20 MG PO (17:04)
[2021-09-04] MEDS: LORazepam (*CRX) 1 MG TABLET PO (17:05)
[2021-09-04] MEDS: MELATONIN 5 MG TABLET PO (20:23)
[2021-09-05] VITALS (29 sets, daily range): BP systolic 101–176; BP diastolic 61–99; PULSE 62–86; RESP 13–20; TEMP 36–37; O2SAT 90–100
[2021-09-05 05:13] LABS: Hemoglobin A1C 5.8 % (<5.7)
[2021-09-05 05:17] LABS: Anion Gap 8 mmol/L (8-16); Blood Urea Nitrogen 35 mg/dL (9-20); Calcium 9.1 mg/dL (8.4-10.2); Carbon Dioxide 26 mmol/L (22-30); Chloride 105 mmol/L (98-107); Estimated CRCL calculation 42 ml/min; Estimated Glomerular Filt Rate 46; Glucose 108 mg/dL (65-110); Sodium 139 mmol/L (137-145)
--- NOTE | 2021-09-05 07:38 | PM.PNCARD ---
Progress Note: A&P Assessment and Plan (1) Chest pain: Code(s): R07.9 - Chest pain, unspecified Status: Acute Assessment and Plan: VA has been ruled out by serial troponin and EKG. Lexiscan myoview stress test shows no ischemia; EF 18%. (2) OLMEDO (dyspnea on exertion): Code(s): R06.00 - Dyspnea, unspecified Status: Acute (3) CAD (coronary artery disease): Code(s): I25.10 - Atherosclerotic heart disease of [place] coronary artery without angina pectoris Status: Chronic Assessment and Plan: On aspirin and Plavix. (4) Dyslipidemia: Code(s): E78.5 - Hyperlipidemia, unspecified Status: Chronic Assessment and Plan: On statin. (5) Hypertension: Code(s): I10 - Essential (primary) hypertension Status: Acute Assessment and Plan: Stable and was low yesterday, hold Isosorbide mononitrate. (6) Ventricular ectopics: Code(s): I49.3 - Ventricular premature depolarization Status: Acute Assessment and Plan: Probably exacerbated by decreasing Coreg dose recently. No bradyarrhythmias, just PVC's causing falsely low HR counts. (7) Combined systolic and diastolic congestive heart failure: Code(s): I50.40 - Unspecified combined systolic (congestive) and diastolic (congestive) heart failure Status: Acute Assessment and Plan: Acute on chronic. Echo shows EF 15-20%, severe LVE, grade I diastolic dysfunction (E/e' 11), trace AI, mild-mod MR. Discuss risks/benefits/alternative to left heart cath and he is agreeable for procedure. I will notify HCG today for left heart cath. Will start Entresto. On Coreg. Order Life Vest to prevent sudden cardiac arrest, and patient is interested in it. (8) JULIA (acute kidney injury): Code(s): N17.9 - Acute kidney failure, unspecified Status: Acute Assessment and Plan: Due to hypotensive episode with lexiscan. Kidney function improving Cr 1.5/Cr Cl 42. Subjective Date/time seen: 09/05/21 07:38 Denies chest pain or sob. Exam Const: General: cooperative, healthy appearing and comfortable Nutritional Appearance: obese Resp: Auscultation: clear to auscultation bilaterally, no crackles, no rales, no rhonchi and no wheezes Cardio: Jugular venous distension: no JVD Rate: regular rate Rhythm: regular rhythm Heart sounds: no murmurs Peripheral pulses: dorsalis pedis present GI: GI Palp: No abdominal tenderness and Yes Soft to palpation Neuro: General: oriented to person, oriented to place and oriented to time Extrem: Right lower extremity: no edema Left lower extremity: no edema Objective Data Vital Signs Vital Signs: Vital Signs - 24 hr 09/04/21 08:00 09/04/21 08:23 09/04/21 10:00 Temperature 98.1 F Pulse Rate 76 76 67 Respiratory Rate 18 Blood Pressure 140/86 Pulse Oximetry 98 09/04/21 12:00 09/04/21 13:54 09/04/21 16:00 Temperature 98 F 98.1 F Pulse Rate 69 71 73 Respiratory Rate 18 16 Blood Pressure 110/70 109/88 Pulse Oximetry 96 98 09/04/21 17:55 09/04/21 20:00 09/04/21 20:17 Temperature 96.8 F L Pulse Rate 76 68 68 Respiratory Rate 18 18 Blood Pressure 106/65 Pulse Oximetry 96 96 09/04/21 20:23 09/04/21 22:00 09/04/21 23:16 Temperature 99.2 F Pulse Rate 68 67 78 Respiratory Rate 20 Blood Pressure 125/78 Pulse Oximetry 99 09/05/21 00:00 09/05/21 02:00 09/05/21 04:00 Temperature 97.3 F L Pulse Rate 67 62 68 Respiratory Rate 20 20 Blood Pressure 122/70 Pulse Oximetry 99 100 09/05/21 06:00 Temperature Pulse Rate 66 Respiratory Rate Blood Pressure Pulse Oximetry Intake/Output Intake/Output: Intake & Output 09/02/21 09/03/21 09/04/21 09/05/21 23:59 23:59 23:59 23:59 Intake Total 999 1360 Output Total 500 300 250 Balance 499 1060 -250 Meds/Results Medications: Active Medications Generic Name Dose Route Start Last Admin Trade Name Freq PRN [place]
[2021-09-05] MEDS: HYDROcodone/acetaminophen (*CRX) 10-325 MG TABLET 1 TAB PO ×2 (10:18→21:14)
[2021-09-05] MEDS: SACCHAROMYCES BOULARDII 250 MG CAPSULE PO ×2 (10:18→18:50)
[2021-09-05] MEDS: ASPIRIN 81 MG ENTERIC TABLET PO (10:19)
[2021-09-05] MEDS: LORATADINE 10 MG TABLET PO (10:19)
[2021-09-05] MEDS: carvediloL 3.125 MG TABLET PO ×2 (10:19→21:13)
[2021-09-05] MEDS: MIRABEGRON 50 MG ER TABLET PO (10:19)
[2021-09-05] MEDS: PANTOPRAZOLE 40 MG TABLET PO (10:20)
[2021-09-05] MEDS: ESCITALOPRAM OXALATE 10 MG TABLET PO (10:21)
[2021-09-05] MEDS: PREGABALIN (*CRX) 50 MG CAPSULE PO ×2 (10:23→18:51)
[2021-09-05] MEDS: SACUBITRIL/VALSARTAN 24-26 MG TABLET 1 TAB PO (10:23)
[2021-09-05] MEDS: CLOPIDOGREL BISULFATE 75 MG TABLET PO (10:24)
[2021-09-05 11:42] LABS: Activated Clotting Time 301 SEC (74-137)
--- NOTE | 2021-09-05 12:11 | ECG_ITS ---
Measurements Intervals [place] Rate: 70 P: [place]: 0 QRS: -33 QRSD: 197 T: 88 QT: 478 QTc: 516 Interpretive Statements SINUS RHYTHM VENTRICULAR PREMATURE COMPLEXES LEFT AXIS DEVIATION LEFT BUNDLE BRANCH BLOCK ABNORMAL ECG Electronically Signed On 09-05-2021 14:34:25 BETTING AGENCY COUNTER CLERK by Fazal Arshad D.O.
--- NOTE | 2021-09-05 14:03 | PM.CNCAR ---
Assessment and Plan Additional Plan angina and worsening LV systolic function, HX of CAD, plan [facility] History of Present Illness History of Present Illness Consult date/time: 09/05/21 14:03 Reason For Visit: Ventricular Arrhythmia Narrative: Patient admitted with bradycardia and further evaluation he mentioned he is having chest discomfort with activity. he had Hx of CAD with prior stents to LAD, work up also revealed worsening LV systolic function. 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 He has 3 biological children and 1 step children. The patient is retired from [employer]. the patient stated that he is an ex-smoker. the patient occasionally drinks alcohol. 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 Code status full code Smoking status: Never smoker Alcohol intake: never Substance use type: does not use Spiritual care concerns: No Meds Home Medications and Allergies Home Medications Medication Instructions Recorded Confirmed Type carvedilol 3.125 mg PO Q12H 09/02/21 09/02/21 History clopidogrel 75 mg PO DAILY 09/02/21 09/02/21 History escitalopram oxalate 10 mg PO DAILY 09/02/21 09/02/21 History hydrocodone-acetaminophen 10 tablet PO Q12H 09/02/21 09/02/21 History isosorbide mononitrate 60 mg PO DAILY 09/02/21 09/02/21 History lorazepam 1 mg PO QPM 09/02/21 09/02/21 History omeprazole 20 mg PO DAILY 09/02/21 09/02/21 History pregabalin 50 mg PO BID 09/02/21 09/02/21 History rosuvastatin 20 mg PO QPM 09/02/21 09/02/21 History zolpidem 10 mg PO QPM PRN 09/02/21 09/02/21 History Saccharomyces boulardii [Florastor] 250 mg PO BID 09/03/21 09/03/21 History aspirin [Aspir-81] 81 mg PO DAILY 09/03/21 09/03/21 History cetirizine 10 mg PO DAILY 09/03/21 09/03/21 History melatonin 5 mg PO HS 09/03/21 09/03/21 History mirabegron [Myrbetriq] 50 mg PO DAILY 09/03/21 09/03/21 History naloxegol [Movantik] 25 mg PO DAILY 09/03/21 09/03/21 History nitroglycerin 0.4 mg SUBLINGUAL Q5M PRN 09/03/21 09/03/21 History Allergies Allergy/AdvReac Type Severity Reaction Status Date / Time No Known Allergies Allergy Unknown Unverified 09/14/10 11:54 Vital Signs Vital Signs - 24 hr 09/04/21 16:00 09/04/21 17:55 09/04/21 20:00 Temperature 36.7 C 36.0 C L Pulse Rate 73 76 68 Respiratory Rate 16 18 Blood Pressure 109/88 106/65 Pulse Oximetry 98 96 09/04/21 20:17 09/04/21 20:23 09/04/21 22:00 Temperature Pulse Rate 68 68 67 Respiratory Rate 18 Blood Pressure Pulse Oximetry 96 09/04/21 23:16 09/05/21 00:00 09/05/21 02:00 Temperature 37.3 C Pulse Rate 78 67 62 Respiratory Rate 20 20 Blood Pressure 125/78 Pulse Oximetry 99 99 09/05/21 04:00 09/05/21 06:00 09/05/21 08:00 Temperature 36.3 C L 37.0 C Pulse Rate 68 66 64 Respiratory Rate 20 16 Blood Pressure 122/70 107/79 Pulse Oximetry 100 94 09/05/21 10:19 09/05/21 12:15 09/05/21 12:30 Temperature 36.4 C Pulse Rate 81 75 6
--- NOTE | 2021-09-05 14:08 | WPDCARDPROC ---
Cardiac Cath Procedure Note Date of procedure:: 09/05/21 Performing physician:: Waldo Vaughn MD Assessment and Plan Additional Plan PROCEDURES 1. LHC and coronary angiogram 2. PCI to proximal RCA 90% stenosis with one CHRISTINA 3.5 * 12 INDICATIONS Refractory angina and worsening EF HISTORY 76 yrs old male with Hx of CAD on optimal medical therapy with chest discomfort with mild acitivty, EF noted to be sverely reduced ACCESS SITE Rt radial (access obtained with Seildinger technique) SEDATION Consent was obtained and time out was done. Access site prepped and draped in sterile fashion. Moderate sedation was done with 1 mg versed and 25 mcg fentanyl, under my supervision and patient tolerated procedure well and fully awake at end of procedure HEMODYNAMICS LV 100/20 No gradient across AV CORONARY ANGIOGRAM Left main: Normal and gives LAD and LCX LAD: gives one large Dx branch. patent stent in LAD and diagonal branch with mild ISR in ostium of diagonal, remaining of LAD with no obstructive disease. LCX: gives one large size OM with no obstructive CAD RCA: Dominant, proximal RCA 90% stenosis and remaining of RCA and rPDA and rPL with no significant disease. PCI Case was discussed with referring paint roller covermaker and patient and decision to proceed with PCI Guide catheter: JR4 Anticoagulation with heparin Antiplatelet therapy: ASA and plavix Guide wire: Runthrough wire crossed to distal vessel Balloon angioplasty was done with 3.0 * 12 mm balloon then sten done with Xioence Татьяна 3.5 * 12 mm and post dilatyed with 3.5 * 8 NC Quanteum apex balloon at 20 HAKEEM Pre-intervention: 90% stenosis in lesion, not previosuly treated, GIO 3 flow, class B Post-intervention: 0% stenosis and GIO 3 flow COMPLICATION None Estimated blood loss: 20 ml Estimated amount of contrast: 60 ml Sheath removed and TR band applied CONCLUSION Single vessel CAD proximal RCA 90% stenosis, s/p PCI with one CHRISTINA XIENCE Татьяна 3.5 * 12 CHRISTINA Patent stent in LAD and D1 RECOMMENDATION DAPT Optimal medial therapy of CAD and CHF per his paint roller covermaker
--- NOTE | 2021-09-05 14:09 | PM.IMPN ---
Progress Note: A&P Assessment and Plan (1) Cardiac arrhythmia: Code(s): I49.9 - Cardiac arrhythmia, unspecified Status: Acute Assessment and Plan: Patient is a 76-year-old man with a history of coronary artery disease status post PCI x3, father had CABG x5, who presented to the emergency room for abnormal pulse readings. Patient came in due to pulse oximeter reading at his pain management and primary care office saying that his heart rate was in the 30s. Patient otherwise had dyspnea on exertion, intermittent dizziness for the last 1 month. 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 Troponins stayed within normal range with highest going at 0.024 Dr. Arshad Cardiology ordered for the patient to have a Lexiscan Myoview stress test which was completed but the patient had a reaction and and became bradycardic and required Aminophylline reversal. Since then the patient has had a soft blood pressure, and received some IV fluids with improvement to [address] Arshad who talked to [facility] who preformed a cardiac catheterization today which showed 80% stenosis of RCA with stent placement. He will be monitored overnight after stent Patient also getting Life Vest to wear for 3 months until repeat Echo can be completed to recheck heart function Patient feeling well at this time. Patient understands with the plan at this time. Appreciate cardiology's input. (2) JULIA (acute kidney injury): Code(s): N17.9 - Acute kidney failure, unspecified Status: Acute Assessment and Plan: This morning the patient's creatinine went up to 2.0. This could be after the diuretics verses nuclear medicine side effect causing bradycardia and hypotension causing the kidneys to go in shock. Cr improved to 1.5 today and CrCl 42. Will recheck in the morning status post cardiac cath Will continue monitoring. (3) Combined systolic and diastolic congestive heart failure: Code(s): I50.40 - Unspecified combined systolic (congestive) and diastolic (congestive) heart failure Status: Acute Assessment and Plan: Systolic and diastolic dysfunction, NOT in exacerbation. Continue with home medications. He stated he had an echo approximately 1 year ago. EF on Lexiscan stress test showed his heart function at 18% Echocardiogram shows LV chamber severely enlarged, LV systolic function is severely reduced at 15-20%, Left ventricular septal wall motion is abnormal with septal motion related to bundle branch block. Left ventricular diastolic function is grade I diastolic dysfunction. Will need LifeVest for 3 months Appreciate cardiology's input. (4) CAD (coronary artery disease): Code(s): I25.10 - Atherosclerotic heart disease of [place] coronary artery without angina pectoris Status: Chronic Assessment and Plan: Continue with patient's home medications. The patient stated the he has a history of having 3 coronary stents. Continue aspirin and Plavix. Appreciate cardiology's input (5) Chronic back pain: Code(s): M54.9 - Dorsalgia, unspecified; G89.29 - Other chronic pain Status: Chronic Assessment and Plan: History of back surgery and left nerve damage with footdrop. Stable at this time. Continue with home medications for pain management. (6) Dyslipidemia: Code(s): E78.5 - Hyperlipidemia, unspecified Status: Chronic Assessment and Plan: Continue with home medications. Time Spent With Patient Time with patient:
--- NOTE | 2021-09-05 14:21 | SUR.PHASEII ---
all air removed from radial band. site wnl. extremity free from numbness or tingling, pink, cap refill wnl.
--- NOTE | 2021-09-05 15:45 | SUR.PHASEII ---
1520-report given to kamran yadav 1540-patient transferred by wheelchair back to room 212. right radial site wnl. no bleeding or hematoma noted. extremity wnl. pink, pulses present, cap refill wnl. no numbness or tingling noted. patient hand off to nurse at bedside, site wnl.
[2021-09-05] MEDS: LORazepam (*CRX) 1 MG TABLET PO (18:51)
[2021-09-05] MEDS: MELATONIN 5 MG TABLET PO (21:13)
[2021-09-05] MEDS: ROSUVASTATIN 10 MG TABLET 20 MG PO (21:13)
[2021-09-06] VITALS (11 sets, daily range): BP systolic 109–154; BP diastolic 72–73; PULSE 63–89; RESP 16; TEMP 36.5; O2SAT 94–95
--- NOTE | 2021-09-06 07:49 | PM.PNCARD ---
Progress Note: A&P Assessment and Plan (1) Chest pain: Code(s): R07.9 - Chest pain, unspecified Status: Acute Assessment and Plan: Resolved. [place] has been ruled out by serial troponin and EKG. Lexiscan myoview stress test shows no ischemia; EF 18%. (2) OLMEDO (dyspnea on exertion): Code(s): R06.00 - Dyspnea, unspecified Status: Acute (3) CAD (coronary artery disease): Code(s): I25.10 - Atherosclerotic heart disease of [place] coronary artery without angina pectoris Status: Chronic Assessment and Plan: On aspirin and Plavix. Cardiac cath with Dr. Vaughn shows prox RCA 90% stenosis; patent stents in LAD and Diag with mild ISR of Diag; PCI with CHRISTINA to prox RCA with 0% residual stenosis. (4) Dyslipidemia: Code(s): E78.5 - Hyperlipidemia, unspecified Status: Chronic Assessment and Plan: On statin. (5) Hypertension: Code(s): I10 - Essential (primary) hypertension Status: Acute Assessment and Plan: High. Start Losartan 50 mg daily. Increase Coreg 6.25 mg BID. (6) Ventricular ectopics: Code(s): I49.3 - Ventricular premature depolarization Status: Acute Assessment and Plan: Probably exacerbated by decreasing Coreg dose recently. No bradyarrhythmias, just PVC's causing falsely low HR counts. (7) Combined systolic and diastolic congestive heart failure: Code(s): I50.40 - Unspecified combined systolic (congestive) and diastolic (congestive) heart failure Status: Acute Assessment and Plan: Euvolemic. Acute on chronic. Echo shows EF 15-20%, severe LVE, grade I diastolic dysfunction (E/e' 11), trace AI, mild-mod MR. On Coreg. Start Losartan 50 mg daily. Entresto is cost-prohibitive. He has Life Vest to prevent sudden cardiac arrest. Check BMP. If OK, may d/c home from cardiology standpoint and F/U with me in 1 week. (8) JULIA (acute kidney injury): Code(s): N17.9 - Acute kidney failure, unspecified Status: Acute Assessment and Plan: Due to hypotensive episode with lexiscan. Kidney function improving Cr 1.5/Cr Cl 42. Check BMP. Subjective Date/time seen: 09/06/21 07:49 Denies chest pain or sob. He did not sleep much as he was not used to sleeping with event monitor pads on his chest. Right wrist catheter access without hematoma/pain/tenderness. Exam Const: General: cooperative, healthy appearing and comfortable Nutritional Appearance: obese Resp: Auscultation: clear to auscultation bilaterally, no crackles, no rales, no rhonchi and no wheezes Cardio: Jugular venous distension: no JVD Rate: regular rate Rhythm: regular rhythm Heart sounds: no murmurs Peripheral pulses: dorsalis pedis present GI: GI Palp: No abdominal tenderness and Yes Soft to palpation Neuro: General: oriented to person, oriented to place and oriented to time Extrem: Right lower extremity: no edema Left lower extremity: no edema Objective Data Vital Signs Vital Signs: Vital Signs - 24 hr 09/05/21 08:00 09/05/21 10:19 09/05/21 12:15 Temperature 98.6 F 97.6 F Pulse Rate 64 81 75 Respiratory Rate 16 13 Blood Pressure 107/79 127/61 Pulse Oximetry 94 90 09/05/21 12:30 09/05/21 12:45 09/05/21 13:00 Temperature Pulse Rate 69 68 66 Respiratory Rate 14 14 14 Blood Pressure 112/66 109/83 113/67 Pulse Oximetry 90 92 93 09/05/21 13:15 09/05/21 13:30 09/05/21 13:47 Temperature Pulse Rate 75 82 67 Respiratory Rate 14 14 14 Blood Pressure 119/89 119/71 110/87 Pulse Oximetry 94 92 94 09/05/21 14:02 09/05/21 14:15 09/05/21 14:30 Temperature Pulse Rate 71 73 79 Respiratory Rate 14 14 14 Blood Pressure 123/78 105/91 H 141/81 H Pulse Oximetry 92 93 93 09/05/21 14:45 09/05/21 14:59 09/05/21 15:15 Temperature Pulse Rate 68 72 74 Respiratory Rate 14 16 16 Blood Pressure 122/91 H 101/88 107/92 H Pulse Oximetry 94 95 94 09/05/21 15:52 09/05/21 16:00 09/05/21 16:22 [place]
[2021-09-06] MEDS: ASPIRIN 81 MG ENTERIC TABLET PO (08:17)
[2021-09-06] MEDS: carvediloL 6.25 MG TABLET PO (08:18)
[2021-09-06] MEDS: CLOPIDOGREL BISULFATE 75 MG TABLET PO (08:18)
[2021-09-06] MEDS: LORATADINE 10 MG TABLET PO (08:19)
[2021-09-06] MEDS: MIRABEGRON 50 MG ER TABLET PO (08:19)
[2021-09-06] MEDS: ESCITALOPRAM OXALATE 10 MG TABLET PO (08:19)
[2021-09-06] MEDS: LOSARTAN POTASSIUM 50 MG TABLET PO (08:19)
[2021-09-06] MEDS: SACCHAROMYCES BOULARDII 250 MG CAPSULE PO (08:20)
[2021-09-06] MEDS: PANTOPRAZOLE 40 MG TABLET PO (08:20)
[2021-09-06] MEDS: PREGABALIN (*CRX) 50 MG CAPSULE PO (08:24)
[2021-09-06] MEDS: HYDROcodone/acetaminophen (*CRX) 10-325 MG TABLET 1 TAB PO (08:24)
[2021-09-06] MEDS: ONDANSETRON INJ 4 MG/2 ML VIAL IV PUSH (11:19)
[2021-09-06 12:39] LABS: Anion Gap 10 mmol/L (8-16); Blood Urea Nitrogen 20 mg/dL (9-20); Calcium 9.8 mg/dL (8.4-10.2); Carbon Dioxide 25 mmol/L (22-30); Chloride 105 mmol/L (98-107); Estimated CRCL calculation 76 ml/min; Estimated Glomerular Filt Rate > 60; Glucose 159 mg/dL (65-110); Potassium 3.8 mmol/L (3.4-5.0); Sodium 140 mmol/L (137-145)
--- NOTE | 2021-09-06 12:55 | PM.DS ---
DS: Admitting Diagnosis Discharge Date 09/06/21 Admitting Diagnosis Abnormal heart arrhythmia DS: Discharge Diagnosis Discharge Diagnosis (1) Cardiac arrhythmia: Code(s): I49.9 - Cardiac arrhythmia, unspecified Status: Acute Assessment and Plan: Patient is a 76-year-old man with a history of coronary artery disease status post PCI x3, father had CABG x5, who presented to the emergency room for abnormal pulse readings. Patient came in due to pulse oximeter reading at his pain management and primary care office saying that his heart rate was in the 30s. Patient otherwise had dyspnea on exertion, intermittent dizziness for the last 1 month. 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 about 6 years ago. Troponins stayed within normal range with highest going at 0.024 Dr. Arshad Cardiology ordered for the patient to have a Lexiscan Myoview stress test which was completed but the patient had a reaction and and became bradycardic and required Aminophylline reversal. Since then the patient has had a soft blood pressure, and received some IV fluids with improvement to [address] Arshad who talked to the [facility] who preformed a cardiac catheterization 09/05/21 which showed 90% stenosis of RCA with stent placement. He is doing well at this time without any CP/SOB complaints. Patient has Life Vest in place to wear for 3 months until repeat Echo can be completed to recheck heart function Patient otherwise stable for discharge to continue on Aspirin and Plavix due to recent stent. Follow up with PCP in 1 week. Follow up with Dr. Arshad Cardio in 1 week. Return to ER warnings given. Patient and understand and agree with the plan. All questions answered. (2) JULIA (acute kidney injury): Code(s): N17.9 - Acute kidney failure, unspecified Status: Acute Assessment and Plan: This morning the patient's creatinine went up to 2.0. This could be after the diuretics verses nuclear medicine side effect causing bradycardia and hypotension causing the kidneys to go in shock. Cr normal at 0.8 today. Stable post-cath (3) Combined systolic and diastolic congestive heart failure: Code(s): I50.40 - Unspecified combined systolic (congestive) and diastolic (congestive) heart failure Status: Acute Assessment and Plan: Systolic and diastolic dysfunction, NOT in exacerbation. Continue with home medications. He stated he had an echo approximately 1 year ago. EF on Lexiscan stress test showed his heart function at 18% Echocardiogram shows LV chamber severely enlarged, LV systolic function is severely reduced at 15-20%, Left ventricular septal wall motion is abnormal with septal motion related to bundle branch block. Left ventricular diastolic function is grade I diastolic dysfunction. Will need LifeVest for 3 months Follow up with Cardiology (4) CAD (coronary artery disease): Code(s): I25.10 - Atherosclerotic heart disease of [place] coronary artery without angina pectoris Status: Chronic Assessment and Plan: Continue with patient's home medications. The patient stated the he has a history of having 3 coronary stents. Continue aspirin and Plavix. 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 Stable at this time. Continue with home medications for pain management. (6) Dyslipidemia: Code(s): E78.5 - Hyperlipidemia, unspecified
== END 2021-09-06 14:35 | disposition home or self-care (01) | DRG 247 ==
LOC: ANHED 19:09 → ANHIMU 09-03 00:20
PROVIDERS: Emergency Medicine; Internal Medicine Cardiovascular Disease; Internal Medicine Interventional Cardiology; Nurse Practitioner; Admitting Provider Internal Medicine; Emergency Provider Emergency Medicine; PCP Internal Medicine; Visit Provider Physician Assistant
PROC: 4A023N7 Measurement of Cardiac Sampling and Pressure, Left Heart, Percutaneous Approach (ICD-10-PCS; CPT 93452; principal; 2021-09-05 10:30)
PROC: 027034Z Dilation of Coronary Artery, One Artery with Drug-eluting Intraluminal Device, Percutaneous Approach (ICD-10-PCS; 2021-09-05 10:30)
DX: I25.119 Atherosclerotic heart disease of native coronary artery with unspecified angina pectoris (principal); N17.9 Acute kidney failure, unspecified; I50.42 Chronic combined systolic (congestive) and diastolic (congestive) heart failure; E78.5 Hyperlipidemia, unspecified; M54.9 Dorsalgia, unspecified; G89.29 Other chronic pain; M21.372 Foot drop, left foot; E66.9 Obesity, unspecified; Z68.35 Body mass index [BMI] 35.0-35.9, adult; I49.3 Ventricular premature depolarization; I49.1 Atrial premature depolarization; G62.9 Polyneuropathy, unspecified; G47.33 Obstructive sleep apnea (adult) (pediatric); Z96.653 Presence of artificial knee joint, bilateral; Z95.5 Presence of coronary angioplasty implant and graft; Z85.72 Personal history of non-Hodgkin lymphomas; Z98.42 Cataract extraction status, left eye; Z98.41 Cataract extraction status, right eye; Z87.891 Personal history of nicotine dependence; Z95.1 Presence of aortocoronary bypass graft; Z79.02 Long term (current) use of antithrombotics/antiplatelets; Z79.82 Long term (current) use of aspirin
CPT/HCPCS: 36415; 71045; 78452; 80048; 80053; 80061; 82728; 82803; 82948; 83036; 83605; 83615; 83690; 83735; 83880; 84443; 84484; 85025; 85027; 85610; 85730; 93005; 93017; 93306; 93458; 99285; A9270; A9502; C1725; C1769; C1874; C1887; C1894; C9600; J0280; J1644; J1650; J1940; J2250; J2405; J2785; J3010; J7030; J7040; J7120

== ENCOUNTER 2021-11-10 12:10 | Outpatient (CLI) | payer MEDICARE, SELFPAY ==
--- NOTE | 2021-11-10 12:19 | ECHO_ITS ---
Patient Info Name: Tony Snell Age: 76 years : 1945 Gender: Male Ht: 65 in Wt: 228 lbs BSA: 2.23 m2 HR: 82 bpm BP: 141 / 84 mmHg Technical Quality: Good Exam Date: 11/10/2021 12:32 PM Exam Location: [facility] Patient Status: Outpatient Admit Date: 11/10/2021 Staff Ordering Physician: Fazal Arshad DO Content Editor: Keely Urena RDCS Attending Provider: Fazal Arshad DO Referring Physician: Jeancarlos LEROY; Exam Type: CA echo doppler color flow Study Info Indications I50.40 - Unspecified combined systolic (congestive) and diastolic (congestive) heart failure Complete two-dimensional, color flow and Doppler transthoracic echocardiogram is performed. Summary 1. Complete two-dimensional, color flow and Doppler transthoracic echocardiogram is performed. 2. Left ventricular chamber dimension is severely enlarged. 3. Left ventricular systolic function is severely reduced, estimated at 20-25%. 4. There is mildly increased left ventricular wall thickness. 5. The left ventricular diastolic function is grade I diastolic dysfunction. 6. E/e' 19 is elevated. 7. Global longitudinal strain is abnormal at -7.9%. 8. Left atrial chamber dimension is moderately enlarged. 9. There is mild aortic valve sclerosis. 10. There is mild aortic valve regurgitation. 11. There is mild to moderate mitral valve regurgitation. 12. There is mild tricuspid valve regurgitation. 13. Mild pulmonary hypertension, estimated pulmonary arterial systolic pressure is 41 mmHg. Left Ventricle E/e' 19 is elevated. Global longitudinal strain is abnormal at -7.9%. Left ventricular chamber dimension is severely enlarged. Left ventricular systolic function is severely reduced, estimated at 20-25%. There is mildly increased left ventricular wall thickness. The left ventricular diastolic function is grade I diastolic dysfunction. Right Ventricle Right ventricular chamber dimension is normal. Right ventricular systolic function is normal. Left Atria Left atrial chamber dimension is moderately enlarged. Right Atria Right atrial chamber dimension is normal. Aortic Valve The aortic valve is trileaflet. There is mild aortic valve sclerosis. There is no aortic valve stenosis. There is mild aortic valve regurgitation. Pulmonic Valve There is no pulmonic regurgitation. Mitral Valve There is no mitral valve stenosis. There is mild to moderate mitral valve regurgitation. Tricuspid Valve There is mild tricuspid valve regurgitation. Mild pulmonary hypertension, estimated pulmonary arterial systolic pressure is 41 mmHg. Pericardium/Pleural There is no pericardial effusion. Inferior Vena Cava Normal inferior vena cava with >50% collapse upon inspiration consistent with normal right atrial pressure, 5 mmHg. Aorta The aortic root size at the sinus of Valsalva is normal. Left Ventricular Outflow Tract Name Value Normal LVOT 2D LVOT Diameter 2.1 cm LVOT Doppler LVOT Peak Gradient 2 mmHg LVOT Mean Gradient 1 mmHg LVOT VTI 16 cm
== END 2021-11-10 12:11 | disposition home or self-care (01) ==
PROVIDERS: PCP Family Medicine; Visit Provider Internal Medicine Cardiovascular Disease
DX: I50.40 Unspecified combined systolic (congestive) and diastolic (congestive) heart failure (principal); I35.8 Other nonrheumatic aortic valve disorders; I08.3 Combined rheumatic disorders of mitral, aortic and tricuspid valves; I27.20 Pulmonary hypertension, unspecified
CPT/HCPCS: 93306